=== PATIENT | female | born 1980 | race American Indian/Alaskan Native ===

== ENCOUNTER 2017-11-26 11:09 | Observation (INO) | payer OTHER ==
[2017-11-24 13:54] LABS: Basophils % (Auto) 0.7 % (0.0-1.8); Eosinophils % (Auto) 0.8 % (0.0-4.3); Hematocrit 43.7 % (30.3-42.9); Lymphocytes # (Auto) 1.6 K/mm3 (1.2-5.4); Lymphocytes % (Auto) 27.7 % (13.4-35.0); Mean Corpuscular HGB Conc 34 % (30-34); Mean Corpuscular Hemoglobin 31 pg (28-32); Mean Corpuscular Volume 90 fl (79-97); Monocytes # (Auto) 0.4 K/mm3 (0.0-0.8); Platelet Count 240 K/mm3 (140-440); Red Blood Count 4.89 M/mm3 (3.65-5.03); Red Cell Distribution Width 13.5 % (13.2-15.2)
--- NOTE | 2017-11-26 10:23 | History and Physical Report ---
History of Present Illness Date of examination: 11/26/17 Date of admission: 11/26/2017 Chief complaint: Worsening dysmenorrhea History of present illness: 37-year-old with a history of severe dysmenorrhea. The patient reports having improvement in her vaginal bleeding after undergoing an endometrial ablation however she still reports significant pain and uterine cramping during her menses. The patient states recently she has noted increased vaginal bleeding. The patient has a known history of recurrent ovarian cysts and currently complains of chronic right lower quadrant pain. She also describes pain with intercourse. Past History Past Medical History: hypertension, other (anxiety; depression; ovarian cyst; adenomyosis) Past Surgical History: D&C, other (endometrial ablation; tubal ligation) Social history: - Obstetrical History : 5 Para: 4 Hx # Term Pregnancies: 4 Number of Pregnancies: 0 Spontaneous Abortions: 1 Induced : 0 Number of Living Children: 4 Medications and Allergies Allergies Allergy/AdvReac Type Severity Reaction Status Date / Time No Known Allergies Allergy Unverified 11/21/17 14:46 Home Medications Medication Instructions Recorded Confirmed Last Taken Type Amlodipine Besylate [Norvasc] 5 mg PO DAILY 11/21/17 11/21/17 Unknown History Review of Systems Genitourinary: pelvic pain - Vital Signs Vital signs: Vital Signs Temp Pulse Resp BP 98.9 F 88 18 120/88 11/24/17 13:20 11/24/17 13:20 11/24/17 13:20 11/24/17 13:20 Temp Pulse Resp BP Pulse Ox 98.9 F 88 18 120/88 11/24/17 13:20 11/24/17 13:20 11/24/17 13:20 11/24/17 13:20 - Physical Exam Breasts: Positive: deferred Cardiovascular: Regular rate Lungs: Positive: Clear to auscultation Abdomen: Positive: normal appearance Results Result Diagrams: 11/24/17 13:25 All other labs normal. Assessment and Plan - Patient Problems (1) Severe dysmenorrhea Status: Acute Plan to address problem: The patient elected to undergo robotic hysterectomy and bilateral salpingectomy. The risk and benefits of the surgery were discussed with the patient. (2) Ovarian cyst Status: Acute (3) Chronic pelvic pain in female Status: Acute
[~2017-11-26 11:09] MED LIST: ANCEF/STERILE WATER 2 GM/20 ML 2 GM/20 ML SYRINGE IV SCH
[2017-11-26] MEDS ORDERED: VERSED ONE (12:12)
[2017-11-26] MEDS ORDERED: SUBLIMAZE ONE ×3 (12:13→13:10)
[2017-11-26] MEDS ORDERED: MARCAINE 0.5% 30 ML INFILTRATI ONE (12:13)
[2017-11-26] MEDS ORDERED: NACL BACTERIOSTATIC INFILTRATI ONE (12:25)
[2017-11-26] MEDS ORDERED: THROMBIN (BOVINE) TP ONE ×2 (12:34→13:56)
[2017-11-26] MEDS ORDERED: GELFOAM POWDER 1GM MM ONE ×2 (12:34→13:56)
[2017-11-26] MEDS ORDERED: NEOSPORIN GU IR ONE ×2 (12:35→13:56)
[2017-11-26] MEDS ORDERED: XYLOCAINE MPF 2% ONE (12:41)
[2017-11-26] MEDS ORDERED: LACTATED RINGERS 1,000 ML ONE (12:41)
[2017-11-26] MEDS ORDERED: DIPRIVAN 10 MG/ML IV ONE (12:41)
[2017-11-26] MEDS ORDERED: ZEMURON IV ONE (12:41)
[2017-11-26] MEDS ORDERED: NACL 0.9% IR ONE (13:56)
--- NOTE | 2017-11-26 13:57 | Anesthesia Day of Surgery ---
Anesthesia Day of Surgery - Day of Surgery Patient Examined: Yes Patient H&P Reviewed: Yes Patient is NPO: Yes
--- NOTE | 2017-11-26 13:58 | Anesthesia Consultation ---
Anesthesia Consult and Med Hx Date of service: 11/26/17 - Airway Anesthetic Teeth Evaluation: Good ROM Head & Neck: Adequate Mental/Hyoid Distance: Adequate Mallampati Class: Class I Intubation Access Assessment: Good - Pulmonary Exam CTA: Yes - Cardiac Exam Cardiac Exam: RRR - Pre-Operative Health Status ASA Pre-Surgery Classification: ASA2 Proposed Anesthetic Plan: General - Cardiovascular System Hx Hypertension: Yes (x 5 yrs) - Central Nervous System Hx Psychiatric Problems: No - Other Systems Hx Cancer: No
[2017-11-26] MEDS ORDERED: LACTATED RINGERS 1,000 ML IV SCH (15:00)
[2017-11-26] MEDS ORDERED: BLOXIVERZ ONE (15:03)
[2017-11-26] MEDS ORDERED: ZOFRAN ONE (15:03)
[2017-11-26] MEDS ORDERED: TORADOL ONE (15:03)
[2017-11-26] MEDS ORDERED: ROBINUL ONE (15:03)
[2017-11-26] MEDS ORDERED: AMBIEN PO PRN (15:06)
[2017-11-26] MEDS ORDERED: MILK OF MAGNESIA PO PRN (15:06)
[2017-11-26] MEDS ORDERED: ZOFRAN IV PRN (15:06)
[2017-11-26] MEDS ORDERED: TYLENOL PO PRN (15:06)
[2017-11-26] MEDS ORDERED: NARCAN 0.4 MG/1 ML IV PRN (15:06)
[2017-11-26] MEDS ORDERED: MOTRIN PO PRN (15:06)
[2017-11-26] MEDS ORDERED: PERCOCET 5/325 PO PRN (15:06)
--- NOTE | 2017-11-26 15:06 | Operative Report ---
Operative Report Operative Report: Date of surgery: 11/26/2017 Preoperative diagnoses: Severe dysmenorrhea; chronic pelvic pain; ovarian cyst Postoperative diagnoses: Same as above Procedure: Robotic hysterectomy and bilateral salpingo-oophorectomy; lysis of adhesions Surgeon: Negrita Avila M.D. Claim Adjuster: Orquidea Cerda Anesthesia: Gen. endotracheal anesthesia Estimated blood loss: 50 mL Pathology: Uterus, cervix, tubes, ovaries Indication: 37-year-old 014 with a history of worsening dysmenorrhea. The patient also reports a history of recurrent ovarian cysts with worsening right lower quadrant pain. Procedure: The patient was taken to the operating room and given general endotracheal anesthesia without complication. She is prepped and draped in a normal sterile fashion. A bivalve speculum was placed in the patient's vagina and a single- tooth tenaculum placed on the anterior lip of the cervix. The uterus was sounded with the uterine sound. A PrimeSense uterine manipulator was placed in the bivalve speculum was then removed. Attention was then turned to the patient's abdomen where a 12 millimeter supra umbilical skin incision was then made. A Veress needle was placed and peritoneal entry was verified water-filled syringe. Insufflation of the peritoneal cavity was performed with CO2 gas. The 12 mm trocar was then placed under direct visualization. An additional 8 mm trocar was placed on the patient's left and right lateral side just opposite of the supraumbilical trocar. An additional 5 mm right lateral trocar was then placed as the accessory port. The Dirk Duckworth device was used to close the fascia of the 12 mm incision. The patient was then placed in steep Trendelenburg. The da Eze robot was then engaged. A fenestrated forcep was placed in arm 2 and a vessel sealer was placed in arm 1. The surgeon then transferred to the surgical console. General survey of the patient's abdomen and pelvis revealed omental adhesions to the anterior abdominal wall. Bipolar scissors had to be she used in order to life and coagulate the adhesions to improve visualization. The uterus was noted to be mildly enlarged. There were findings of a left ovarian cyst. The infundibulopelvic ligament was then isolated on the right. The vessel sealer was used to coagulate the ligament which was then transected. The tube and ovary were transected from the supply. The round ligament was then coagulated and transected also. The vesicouterine peritoneum was then entered from the patient's right side. The uterine vessels were then coagulated with the vessel sealer. The vessels were then transected . Attention was then turned to the patient's left side where the infundibulopelvic ligament and mesosalpinx were again isolated coagulated and transected. The vesical peritoneum was then entered from the left and joined in the midline. Peritoneum was reflected off of the lower uterine segment. Uterine vessels were then coagulated and then transected. The blood supply to the uterus was adequately contained, a posterior colpotomy was made. The V care ring was visualized. Posterior colpotomy was created with the monopolar scissors. The incision was continued circumferentially until anterior colpotomy was made. The cervix and uterus were amputated from the vaginal cuff. The uterus was then removed along with the tubes and ovaries bilaterally through the vagina and a warm laparotomy sponge was placed and maintain the pneumoperitoneum. The vaginal cuff was then closed in a running fashion with V lock suture. Irrigation of the pelvis was performed. Gelfoam with thrombin was applied to the incision. The skin was then reapproximated with 4-0 Monocryl. The tissue was sent to pathology which included the cervix, uterus, tubes and ovaries. The patient was then successfully extubated. She was then taken to the recovery room in stable condition. All sponge laps and needle counts were correct x2.
[2017-11-26] MEDS ORDERED: D5LR 1,000 ML IV SCH (16:00)
[2017-11-26] MEDS ORDERED: MORPHINE PCA 30MG/30ML IV SCH (16:00)
[2017-11-26] MEDS ORDERED: TORADOL IV SCH (16:00)
[2017-11-27 06:38] LABS: Hematocrit 35.9 % (30.3-42.9); Hemoglobin 12.2 gm/dl (10.1-14.3)
--- NOTE | 2017-11-27 08:53 | Progress Note ---
Assessment and Plan - Patient Problems (1) Severe dysmenorrhea Current Visit: No Status: Acute Plan to address problem: patient doing well discharge home today (2) Ovarian cyst Current Visit: No Status: Acute (3) Chronic pelvic pain in female Current Visit: No Status: Acute Subjective - Subjective Date of service: 11/27/17 Interval history: Patient has been able to void. She tolerated her clear diet. Pain is controlled. Surgery discussed with patient Patient reports: appetite normal, voiding normally, pain well controlled Objective - Vital Signs Latest vital signs: Vital Signs Temp Pulse Resp BP BP Pulse Ox 11/27/17 06:30 98.3 F 64 18 84/46 11/27/17 05:38 18 11/27/17 00:30 98.4 F 69 18 92/58 11/26/17 23:38 18 11/26/17 21:00 98.3 F 73 16 102/63 99 11/26/17 18:00 16 11/26/17 16:50 97.6 F 87 14 112/76 100 11/26/17 16:45 97.6 F 68 16 112/76 100 11/26/17 16:35 68 14 112/75 100 11/26/17 16:20 97.5 F L 69 13 108/69 100 11/26/17 16:05 78 14 101/63 100 11/26/17 15:50 60 15 103/60 100 11/26/17 15:35 61 13 101/60 100 11/26/17 15:30 60 17 101/60 100 11/26/17 15:25 70 17 105/68 100 11/26/17 15:21 97.8 F 76 16 109/71 100 11/26/17 13:25 94 H 16 134/91 99 11/26/17 13:20 94 H 16 138/86 99 11/26/17 13:15 97 H 16 138/91 99 11/26/17 13:10 96 H 16 140/95 99 11/26/17 13:05 90 15 139/85 100 11/26/17 13:00 98.8 F 74 24 128/84 99 11/26/17 12:55 84 13 126/87 100 11/26/17 12:50 87 15 151/82 100 11/26/17 12:15 74 24 128/84 99 Intake and Output 07/11/27/17 11/27/17 22:59 06:59 14:59 Intake Total 770 480 Output Total 1500 800 Balance -730 -320 Intake: IV 650 Intake, Free Water 120 480 Output: Urine 1500 800 Indwelling Catheter 900 800 Other: Total, Output Amount 900 800 Voiding Method Indwelling Catheter Weight 79.832 kg - Exam Abdomen: Present: normal appearance, soft Incision: Present: normal
--- NOTE | 2017-11-27 08:55 | Discharge Summary ---
Providers - Providers Date of Admission: 11/26/17 15:07 Date of discharge: 11/27/17 Attending physician: FLAVIO CLEMENTE Primary care physician: GENEVIEVE RUBI Hospitalization Reason for admission: other (dysmenorrhea) Procedure: other (robotic hysterectomy and BSO) Incision: normal Discharge diagnosis: other (Chronic pelvic pain) Hospital course: Patient underwent a robotic hysterectomy and BSO. See op note. Postoperative course uncomplicated Condition at discharge: Good Disposition: DC-01 TO HOME OR SELFCARE - Discharge Diagnoses (1) Severe dysmenorrhea Status: Acute (2) Ovarian cyst Status: Acute (3) Chronic pelvic pain in female Status: Acute Plan - Discharge Medications Prescriptions: Docusate Sodium [Colace] 100 mg PO BID PRN #60 capsule PRN Reason: Constipation Ibuprofen [Motrin] 800 mg PO Q8HR PRN #60 tablet PRN Reason: Pain , Severe (7-10) Oxycodone HCl/Acetaminophen [Percocet 7.5/325 mg] 1 each PO Q6HR PRN #45 tablet PRN Reason: Pain - Provider Discharge Summary Activity: no sex for 6 weeks, no heavy lifting 4 weeks, no strenuous exercise Diet: routine Instructions: routine Additional instructions: [] Smoking cessation referral if applicable(refer to patient education folder for contact #) [] Refer to [facility] Booklet Call your doctor immediately for: * Fever > 100.5 * Heavy vaginal bleeding ( >1 pad per hour) * Severe persistent headache * Shortness of breath * Reddened, hot, painful area to leg or breast * Drainage or odor from incision. * Keep incision clean and dry at all times and follow doctor's instructions regarding bathing/showering schedule followup with Dr. Spangler in 4 weeks - Follow up plan
[2017-11-27 13:20] VITALS: BP 98/46
== END 2017-11-27 14:00 | disposition home or self-care (01) ==
LOC: OR 11:09 → OB 15:07
PROVIDERS: ADMIT Obstetrics & Gynecology; ATTEND Obstetrics & Gynecology
DX: N83.202 Unspecified ovarian cyst, left side (principal); N83.201 Unspecified ovarian cyst, right side; N94.6 Dysmenorrhea, unspecified; I10 Essential (primary) hypertension; F41.9 Anxiety disorder, unspecified; F32.9 Major depressive disorder, single episode, unspecified
CPT/HCPCS: 36415; 58552; 64450; 84703; 85014; 85018; 85025; 86850; 86900; 86901; 88307; 96374; A4649; G0378; J0690; J1885; J2250; J2270; J2405; J2704; J2710; J3010; J7120; J7121; S2900